=== PATIENT | female | born 1955 | race Asian ===

== ENCOUNTER 2018-11-04 12:25 | Outpatient (CLI) | payer OTHER | END 2018-11-04 19:40 | disposition home or self-care (01) | LOC: RAD 12:25 | DX: M54.42 Lumbago with sciatica, left side (principal); M54.41 Lumbago with sciatica, right side ==

== ENCOUNTER 2019-01-01 18:32 | Emergency (ER) | payer OTHER ==
[~2019-01-01] VITALS: Ht 165.1 cm; Wt 135.2 kg
[2019-01-01 20:11] VITALS: BP 154/97; TEMP 98.2
== END 2019-01-01 20:11 | disposition home or self-care (01) ==
LOC: ED 18:32
DX: L03.116 Cellulitis of left lower limb (principal); S80.862A Insect bite (nonvenomous), left lower leg, initial encounter
CPT/HCPCS: 87070; 87077; 87185; 87186; 87205; 99283

== ENCOUNTER 2019-12-02 00:43 | Emergency (ER) | payer OTHER ==
[~2019-12-02] VITALS: Ht 165.1 cm; Wt 161.0 kg
[2019-12-02 02:16] LABS: PLATELET COUNT 208 K/uL (152-353)
[2019-12-02 02:21] LABS: POTASSIUM 4.2 mmol/L (3.6-5.2)
[2019-12-02 04:00] VITALS: BP 158/74
== END 2019-12-02 04:00 | disposition home or self-care (01) ==
LOC: ED 00:43
PROVIDERS: Family Medicine
DX: J20.9 Acute bronchitis, unspecified (principal); R50.9 Fever, unspecified
CPT/HCPCS: 36415; 80053; 81000; 83605; 85027; 87040; 87502; 87651; 96365; 96366; 99284; J0132; J0696